=== PATIENT | male | born 1995 | race Caucasian/White ===

== ENCOUNTER 2025-01-15 18:40 | Emergency (ER) | payer BC ==
--- NOTE | 2025-01-15 20:10 | RAD REPORT ---
EXAM: Chest Pa And Lat (2 Views) HISTORY: 29 years Male Cough;Congestion COMPARISON: None. FINDINGS: LUNGS/PLEURA: Likely either linear scarring versus subsegmental atelectasis at the right lung base. N o focal consolidation. No edema. CARDIAC/MEDIASTINUM: The cardiac silhouette is within normal limits. UPPER ABDOMEN: No significant abnormality. BONES: No acute abnormality. LINES/TUBES/OTHER: N/A IMPRESSION: Linear opacity at the right lung base probably subsegmental atelectasis or scarring. Mild pneumonia l ess likely
--- NOTE | 2025-01-15 21:02 | EDPHYS ---
Physician Documentation [facility] Name: Dane Lowry Age: 29 yrs Sex: Male : 1995 Arrival Date: 01/15/2025 Time: 18:40 Bed DX1 Private MD: ED Physician Bry Gross HPI: 01/15 18:52 This 29 yrs old Male presents to ER via Unassigned with complaints of Cough, dr5 Congestion. 18:52 Patient is a 29 year old male coming in with cough / congestion. Patient reports his dr5 PCP has diagnosed with Bronchitis and has completed two full set of antibiotics (Azithromycin) and steroids and reports he has not improved over the past four weeks.. Historical: - Allergies: 18:55 PENICILLINS; iw 18:55 CEPHALOSPORINS; iw - PMHx: 18:55 Hypothyroidism; iw 18:57 Hypercholesterolemia; iw - Immunization history:: Adult Immunizations. - Infectious Disease History:: Denies. - Social history:: Smoking status: Patient denies any tobacco usage or history of. ROS: 01/16 00:13 Constitutional: as per hpi dr5 Exam: 00:13 Constitutional: This is a well developed, well nourished patient who is awake, alert, dr5 and in no acute distress. Head/Face: Normocephalic, atraumatic. Eyes: Pupils equal round and reactive to light, extra-ocular motions intact. Lids and lashes normal. Conjunctiva and sclera are non-icteric and not injected. Cornea within normal limits. Periorbital areas with no swelling, redness, or edema. Neck: Trachea midline, no thyromegaly or masses palpated, and no cervical lymphadenopathy. Supple, full range of motion without nuchal rigidity, or vertebral point tenderness. No Meningismus. Chest/axilla: Normal chest wall appearance and motion. Nontender with no deformity. No lesions are appreciated. Cardiovascular: Regular rate and rhythm with a normal S1 and S2. Normal PMI, no JVD. No pulse deficits. Back: No spinal tenderness. No costovertebral tenderness. Full range of motion. Skin: Warm, dry with normal turgor. Normal color with no rashes, no lesions, and no evidence of cellulitis. MS/ Extremity: Pulses equal, no cyanosis. Neurovascular intact. Full, normal range of motion. Neuro: Awake and alert, GCS 15, oriented to person, place, time, and situation. Cranial nerves II-XII grossly intact. Motor strength 5/5 in all extremities. Sensory grossly intact. Cerebellar exam normal. Normal gait. 00:13 Respiratory: the patient does not display signs of respiratory distress, Respirations: normal, Breath sounds: wheezing: that is mild, is heard in the right posterior lower lobe, Vital Signs: 01/15 18:52 BP 139 / 88; Pulse 96; Resp 19; Pulse Ox 97% on R/A; Weight 144.7 kg; Height 6 ft. 0 iw in. ; 18:52 Body Mass Index 43.26 (144.70 kg, 182.88 cm) iw MDM: 18:51 Medical Screening Exam initiated dr5 01/16 00:14 Differential Diagnosis: Bronchitis Influenza Upper Respiratory Infection Pneumonia. dr5 Data reviewed: vital signs, nurses notes, radiologic studies, plain films. I considered the following discharge prescriptions or medication management in the emergency department Medications were administered in the Emergency Department. See MAR. Historians other than the Patient: Parent: Mother. Care significantly affected by the following chronic conditions: Hypothyroidism, Hypercholesterolemia. Care significantly affected by the following Social Determinants of Health: Poor access to healthcare and/or lack of insurance, Poor access to transportation, Problems related to employment. Counseling: I had a detailed discussion with the patient and/or guardian regarding the historical points, exam findings, and any diagnostic results supporting the discharge/admit diagnosis, the presence of at least one elevated blood pressure reading (>120/80) during this emergency department visit, radiology results, the need for outpatient follow up, for definitive care, a family practitioner, to return to the emergency department if symptoms worsen or persist or if there are any questions or concerns that arise at home. ED course: Concerns for possible developing pneumonia, will cover with azithromycin and doxycycline. Zofran given for possible nausea while taking antibiotics. Will hold off on steroids as patient has already completed them and could make patient more immunocompromised. All questions answered. Mother and patient are agreeable to plan.. 01/15 18:56 Order name: Chest Pa And Lat (2 Views) XRAY; Complete Time: 20:34 dr5 Administered Medications: 01/15 21:18 Drug: Doxycycline PO 100 mg PO once Route: PO; cm10 21:18 Follow up: Response: Medication administered at discharge. cm10 Disposition: 22:07 Co-signature as Attending Physician, Bry Gross MD I reviewed the patient's care rt provided by the Advanced Practice Provider and agree with the diagnosis and treatment plan. Disposition Summary: 01/15/25 21:01 Discharge Ordered Notes: Location: Home dr5 Condition: Stable dr5 Diagnosis - Pneumonia, unspecified organism dr5 Followup: dr5 - With: Emergency Department - When: As needed - Reason: Worsening of condition Followup: dr5 - With: Private Physician - When: 1 - 2 days - Reason: Recheck today's complaints, Continuance of care, Re-evaluation by your physician Discharge Instructions: - Discharge Summary Sheet dr5 - Community-Acquired Pneumonia, Adult dr5 Forms: - Work release form dr5 - Medication Reconciliation Form dr5 - Antibiotic Education dr5 - Patient Portal Instructions dr5 - Leadership Thank You Letter dr5 Prescriptions: - Zofran 4 mg Oral Tablet - take 1 tablet ORAL route every 12 hours As needed; 20 tablet; Refills: 0, dr5 Product Selection Permitted - Doxycycline Hyclate 100 mg Oral Tablet - take 1 tablet ORAL route every 12 hours; 20 tablet; Refills: 0, Product dr5 Selection Permitted - Zithromax Z-Case 250 mg Oral Tablet - take 1 tablet ORAL route as directed for 5 days Day 1 - take two (2) tablets dr5 one time. Day 2, 3, 4 , 5 take one (1) tablet once daily.; 6 tablet; Refills: 0, Product Selection Permitted Signatures: Dispatcher [employer] Chelly Sahu, Bry Caal RN, MD MD rt Farzaneh Burnett RN RN cm10 Mainor Valdez, LEGAL ADMINISTRATOR-C LEGAL ADMINISTRATOR-Cdr5 Corrections: (The following items were deleted from the chart) 01/16 00:14 00:13 Respiratory: the patient does not display signs of respiratory distress, dr5 Respirations: normal, Breath sounds: dr5
--- NOTE | 2025-01-15 21:02 | ER ---
Nurse's Notes [facility] Name: Dane Lowry Age: 29 yrs Sex: Male : 1995 Arrival Date: 01/15/2025 Time: 18:40 Bed DX1 Private MD: Diagnosis: Pneumonia, unspecified organism Presentation: 01/15 18:52 Chief complaint: Patient states: PCP said he has bronchitis, has been on steroids and iw abx for past month, cough is worse. Coronavirus screen: At this time, the client does not indicate any symptoms associated with coronavirus-19. Ebola Screen: No symptoms or risks identified at this time. Initial Sepsis Screen: Does the patient meet any 2 criteria? HR > 90 bpm. Does the patient have a suspected source of infection? No. Patient's initial sepsis screen is negative. Risk Assessment: Do you want to hurt yourself or someone else? Patient reports no desire to harm self or others. Onset of symptoms was November 2024. 18:52 Method Of Arrival: Ambulatory iw 18:52 Acuity: ALEKSANDER 4 iw Historical: - Allergies: 18:55 PENICILLINS; iw 18:55 CEPHALOSPORINS; iw - PMHx: 18:55 Hypothyroidism; iw 18:57 Hypercholesterolemia; iw - Immunization history:: Adult Immunizations. - Infectious Disease History:: Denies. - Social history:: Smoking status: Patient denies any tobacco usage or history of. Screenin:19 [facility] ED Fall Risk Assessment (Adult) History of falling in the last 3 months, cm10 including since admission No falls in past 3 months (0 pts) Confusion or Disorientation No (0 pts) Intoxicated or Sedated No (0 pts) Impaired Gait No (0 pts) Mobility Assist Device Used No (0 pt) Altered Elimination No (0 pt) Score/Fall Risk Level 0 - 2 = Low Risk Oriented to surroundings, Maintained a safe environment, Hourly rounding (assess needs \T\ fall precautionary measures) done. Abuse screen: Denies threats or abuse. Denies injuries from another. Nutritional screening: No deficits noted. Tuberculosis screening: No symptoms or risk factors identified. Assessment: 21:20 General: Appears in no apparent distress. uncomfortable, Behavior is calm, cooperative. cm10 Pain: Denies pain. Neuro: No deficits noted. Level of Consciousness is awake, alert, obeys commands, Oriented to person, place, time, situation, Appropriate for age. Cardiovascular: Patient's skin is warm and dry. Respiratory: Reports cough that is Airway is patent Respiratory effort is even, unlabored, Respiratory pattern is regular, symmetrical. Vital Signs: 18:52 BP 139 / 88; Pulse 96; Resp 19; Pulse Ox 97% on R/A; Weight 144.7 kg; Height 6 ft. 0 iw in. ; 18:52 Body Mass Index 43.26 (144.70 kg, 182.88 cm) iw ED Course: 18:44 Patient arrived in ED. im 18:51 Mainor Valdez FNP-C is PHCP. dr5 18:51 Darek Leung MD is Attending Physician. dr5 18:54 Triage completed. iw 19:48 Chest Pa And Lat (2 Views) XRAY In Process Unspecified. EDMS 21:19 Arm band placed on. cm10 21:20 Patient has correct armband on for positive identification. Provided Education on: cm10 follow-up instructions. 21:20 No provider procedures requiring assistance completed. Patient did not have IV access cm10 during this emergency room visit. 21:26 Attending Physician role handed off by Darek Leung MD dr5 21:27 Bry Gross MD is Attending Physician. dr5 Administered Medications: 21:18 Drug: Doxycycline PO 100 mg PO once Route: PO; cm10 21:18 Follow up: Response: Medication administered at discharge. cm10 Medication: 21:19 VIS not applicable for this client. cm10 Outcome: 21:01 Discharge ordered by MD. dr5 21:21 Discharged to home ambulatory, with family, cm10 21:21 Condition: good 21:21 Discharge instructions given to patient, Instructed on discharge instructions, follow up and referral plans. medication usage, Demonstrated understanding of instructions, follow-up care, medications, Prescriptions given X 2, 21:21 Patient left the ED. cm10 21:27 Patient left the ED. dr5 Signatures: Dispatcher [employer] EDMS Chelly Ramsay RN RN iw Jennifer Sanchez Clarissa, RN RN cm10 Mainor Valdez FNP-C COMMUNITY CASE MANAGER-Cdr5 Corrections: (The following items were deleted from the chart) 18:57 18:52 BP 139 / 88; Pulse 96bpm; Resp 19bpm; Pulse Ox 97% RA; iw iw
[2025-01-15] MEDS ORDERED: DOXYCYCLINE 100 MG CAP PO ONE (21:15)
[2025-01-15] MEDS ORDERED: ONDANSETRON 4 MG (ODT) TAB ONE (21:22)
[2025-01-17 23:14] VITALS: BP 139/88; O2SAT 97
== END 2025-01-15 21:27 | disposition home or self-care (01) ==
LOC: ER 18:40
DX: J18.9 Pneumonia, unspecified organism (principal)
CPT/HCPCS: 71046; 99283; Q0162

== ENCOUNTER 2025-01-20 19:06 | Emergency (ER) | payer BC ==
--- NOTE | 2025-01-20 20:00 | RAD REPORT ---
EXAMINATION: TWO VIEW CHEST XR CLINICAL INDICATION: COUGH TECHNIQUE: 2 views of the chest was performed. COMPARISON: 01/15/2025 FINDINGS: Nonspecific peribronchial thickening without focal consolidation could represent a viral infection or reactive airway disease. The heart is upper limit of normal in size. No displaced fractures evident. IMPRESSION: Findings could represent a viral infection or reactive airway disease.
[2025-01-20 20:58] LABS: Influenza A Ag Negative; Influenza B Ag Negative; SARS-CoV-2 Antigen Rapid Res Negative (Negative)
[2025-01-20] MEDS ORDERED: LEVALBUTEROL 1.25 MG/3 ML NEB ONE (21:12)
[2025-01-20] MEDS ORDERED: IPRATROPIUM BROM 0.5MG/2.5ML ONE (21:12)
[2025-01-20] MEDS ORDERED: AZITHROMYCIN 250 MG TAB ONE (21:12)
--- NOTE | 2025-01-20 22:10 | ER ---
Nurse's Notes [facility] Name: Dane Lowry Age: 29 yrs Sex: Male : 1995 Arrival Date: 01/20/2025 Time: 19:06 Bed DX1 Private MD: Diagnosis: Upper respiratory infection, viral pneumonia Presentation: 01/20 19:50 Chief complaint: Patient states: BAD COUGH, PAIN IN CHEST WHEN COUGHING . WAS HERE ON ha1 FRIDAY GOT DIAGNOSED WITH PNEUMONIA AND HAS BEEN TAKING MEDICATIONS PRESCRIBED BUT MY COUGH HAS NOT GONE AWAY COMPLETELY AND I AM WONDERING IF I AM GETTING WORSE. Coronavirus screen: Client denies travel out of the [place] in the last 14 days. Ebola Screen: No symptoms or risks identified at this time. Initial Sepsis Screen: Does the patient meet any 2 criteria? No. Patient's initial sepsis screen is negative. Does the patient have a suspected source of infection? No. Patient's initial sepsis screen is negative. Risk Assessment: Do you want to hurt yourself or someone else? Patient reports no desire to harm self or others. Onset of symptoms was January 13, 2025. 19:50 Method Of Arrival: Ambulatory ha1 19:50 Acuity: ALEKSANDER 4 ha1 Triage Assessment: 19:55 General: Appears comfortable, Behavior is calm, cooperative. Pain:. Neuro: Level of ha1 Consciousness is awake, alert, obeys commands, Oriented to person, place, time, situation. Cardiovascular: Capillary refill < 3 seconds Patient's skin is warm and dry. Respiratory: Airway is patent Respiratory effort is even, unlabored, Respiratory pattern is regular, symmetrical. Historical: - Allergies: 19:55 CEPHALOSPORINS; ha1 19:55 PENICILLINS; ha1 - PMHx: 19:55 Hypercholesterolemia; Hypothyroidism; ha1 - Immunization history:: Adult Immunizations up to date. - Infectious Disease History:: Denies. - Social history:: Smoking status: Patient denies any tobacco usage or history of. Screenin:10 [facility] ED Fall Risk Assessment (Adult) History of falling in the last 3 months, kl including since admission No falls in past 3 months (0 pts) Confusion or Disorientation No (0 pts) Intoxicated or Sedated No (0 pts) Impaired Gait No (0 pts) Mobility Assist Device Used No (0 pt) Altered Elimination No (0 pt) Score/Fall Risk Level 0 - 2 = Low Risk Oriented to surroundings. Abuse screen: Denies threats or abuse. Denies injuries from another. Nutritional screening: No deficits noted. Tuberculosis screening: No symptoms or risk factors identified. Assessment: 22:10 General: Appears in no apparent distress. comfortable, Behavior is calm, cooperative. kl 22:10 Respiratory: Reports cough that is productive. Vital Signs: 19:50 BP 124 / 85; Pulse 97; Resp 18 S; Temp 99.1(O); Pulse Ox 98% on R/A; Weight 99.34 kg; ha1 Height 6 ft. 0 in. ; 19:50 Body Mass Index 29.70 (99.34 kg, 182.88 cm) 1 ED Course: 19:07 Patient arrived in ED. im 19:21 Bran Rondon MD is Attending Physician. jb 19:47 Chest Pa And Lat (2 Views) XRAY In Process Unspecified. EDPA 19:55 Triage completed. ha1 20:08 Attending Physician role handed off by Bran Rondon MD sp3 20:08 Pricilla Middleton MD is Attending Physician. sp3 22:10 Patient has correct armband on for positive identification. Provided Education on: kl Discharge, medications. 22:10 No provider procedures requiring assistance completed. Patient did not have IV access kl during this emergency room visit. Administered Medications: 21:20 Drug: Levalbuterol Inhalation 2.5 mg Inhalation once Route: Inhalation; 21:56 Follow up: Response: No adverse reaction kl 21:20 Drug: Ipratropium Inhalation Aerosol 0.5 mg Inhalation once Route: Inhalation; 21:56 Follow up: Response: No adverse reaction 21:20 Drug: AZITHromycin PO 500 mg PO once Route: PO; kl 21:56 Follow up: Response: No adverse reaction Medication: 22:10 VIS not applicable for this client. Outcome: 22:09 Discharge ordered by . sp3 22:20 Discharged to home ambulatory, with family, kl 22:20 Condition: stable 22:20 Discharge instructions given to patient, family, Instructed on discharge instructions, follow up and referral plans. medication usage, Demonstrated understanding of instructions, follow-up care, medications, Prescriptions given X 3, 22:26 Patient left the ED. Signatures: Dispatcher [facility] EDSwetha Rees RN RN Bran Floyd MD MD cha Patel, Setul, MD MD sp3 Ute Mirza RN RN ha1 Jennifer Sanchez
--- NOTE | 2025-01-20 22:10 | EDPHYS ---
Physician Documentation [facility] Name: Dane Lowry Age: 29 yrs Sex: Male : 1995 Arrival Date: 01/20/2025 Time: 19:06 Bed DX1 Private MD: ED Physician Pricilla Middleton HPI: 01/20 22:06 This 29 yrs old Male presents to ER via Ambulatory with complaints of Chest Congestion. sp3 22:06 29-year-old male with history of hyperlipidemia, hypothyroidism presents with recurrent sp3 and continued cough and congestion over the last month. Patient states that he is in [place] for work and has seen urgent care after as well as his family doctor. He is already been on antibiotics and steroids and has an inhaler. He does not use a spacing device with said inhaler. He is not on any current steroids or antibiotics as he is 1 the course. He presents today primarily for continued cough, congestion and difficulty breathing. He denies any chest pain, blood in his expectorant, back pain, abdominal pain, fever, or any other signs or symptoms on ROS at this time.. Historical: - Allergies: 19:55 CEPHALOSPORINS; ha1 19:55 PENICILLINS; ha1 - PMHx: 19:55 Hypercholesterolemia; Hypothyroidism; ha1 - Immunization history:: Adult Immunizations up to date. - Infectious Disease History:: Denies. - Social history:: Smoking status: Patient denies any tobacco usage or history of. ROS: 22:07 Constitutional: Negative for fever, chills, and weight loss, Eyes: Negative for injury, sp3 pain, redness, and discharge, ENT: Negative for injury, pain, and discharge, Neck: Negative for injury, pain, and swelling, Cardiovascular: Negative for chest pain, palpitations, and edema, Abdomen/GI: Negative for abdominal pain, nausea, vomiting, diarrhea, and constipation, Back: Negative for injury and pain, MS/Extremity: Negative for injury and deformity, Skin: Negative for injury, rash, and discoloration, Neuro: Negative for headache, weakness, numbness, tingling, and seizure, Psych: Negative for depression, anxiety, suicide ideation, homicidal ideation, and hallucinations, Allergy/Immunology: Negative for hives, rash, and allergies, Endocrine: Negative for neck swelling, polydipsia, polyuria, polyphagia, and marked weight changes, 22:07 All other systems are negative, Exam: 22:07 Constitutional: This is a well developed, well nourished patient who is awake, alert, sp3 and in no acute distress. Head/Face: Normocephalic, atraumatic. Eyes: Pupils equal round and reactive to light, extra-ocular motions intact. Lids and lashes normal. Conjunctiva and sclera are non-icteric and not injected. Cornea within normal limits. Periorbital areas with no swelling, redness, or edema. ENT: Nares patent. No nasal discharge, no septal abnormalities noted. External auditory canals are clear. Oropharynx with no redness, swelling, or masses, exudates, or evidence of obstruction, uvula midline. Mucous membranes moist. Neck: Trachea midline, no thyromegaly or masses palpated, and no cervical lymphadenopathy. Supple, full range of motion without nuchal rigidity, or vertebral point tenderness. No Meningismus. Chest/axilla: Normal chest wall appearance and motion. Nontender with no deformity. No lesions are appreciated. Cardiovascular: Regular rate and rhythm with a normal S1 and S2. No gallops, murmurs, or rubs. Normal PMI, no JVD. No pulse deficits. Abdomen/GI: Soft, non-tender, with normal bowel sounds. No distension or tympany. No guarding or rebound. No evidence of tenderness throughout. Back: No spinal tenderness. No costovertebral tenderness. Full range of motion. Skin: Warm, dry with normal turgor. Normal color with no rashes, no lesions, and no evidence of cellulitis. MS/ Extremity: Pulses equal, no cyanosis. Neurovascular intact. Full, normal range of motion. Neuro: Awake and alert, GCS 15, oriented to person, place, time, and situation. Cranial nerves II-XII grossly intact. Motor strength 5/5 in all extremities. Sensory grossly intact. Cerebellar exam normal. Normal gait. Psych: Awake, alert, with orientation to person, place and time. Behavior, mood, and affect are within normal limits. 22:07 Respiratory: Patient with active cough, rhonchi and wheezing. No accessory muscle use. Pulse oxygenation 98% on room air., Vital Signs: 19:50 BP 124 / 85; Pulse 97; Resp 18 S; Temp 99.1(O); Pulse Ox 98% on R/A; Weight 99.34 kg; ha1 Height 6 ft. 0 in. ; 19:50 Body Mass Index 29.70 (99.34 kg, 182.88 cm) ha1 MDM: 19:22 Medical Screening Exam initiated [facility] 22:08 Data reviewed: vital signs, nurses notes, lab test result(s), radiologic studies. ED sp3 course: 29-year-old male with continued URI symptoms. Viral swabs are negative and chest x-ray demonstrates viral pattern. Clinically unlikely suspicious of bacterial pneumonia, sepsis, shock, PE or any other critical process at this time. I have taught patient how to use a spacing device with his inhaler. He also has a nebulizer machine at home so we will prescribe albuterol Nebules. Also another course of steroids and Tessalon Perles. I have advised him if he is not better after this round he needs to see pulmonary for further workup for any other possible cause of his illness.. 01/20 19:23 Order name: COVID-19 Ag + Flu A+B Ag; Complete Time: 21:01 [facility] 01/20 19:23 Order name: Chest Pa And Lat (2 Views) XRAY; Complete Time: 20:09 [facility] Administered Medications: 21:20 Drug: Levalbuterol Inhalation 2.5 mg Inhalation once Route: Inhalation; kl 21:56 Follow up: Response: No adverse reaction kl 21:20 Drug: Ipratropium Inhalation Aerosol 0.5 mg Inhalation once Route: Inhalation; kl 21:56 Follow up: Response: No adverse reaction kl 21:20 Drug: AZITHromycin PO 500 mg PO once Route: PO; kl 21:56 Follow up: Response: No adverse reaction kl Disposition Summary: 01/20/25 22:09 Discharge Ordered Notes: Location: Home sp3 Condition: Stable sp3 Diagnosis - Upper respiratory infection, viral pneumonia sp3 Followup: sp3 - With: Private Physician - When: Upon discharge from the Emergency Department - Reason: Continuance of care Discharge Instructions: - Discharge Summary Sheet sp3 - Viral Respiratory Infection sp3 Forms: - Work release form [id number] - Medication Reconciliation Form sp3 - Antibiotic Education sp3 - Prescription Opioid Use sp3 - Patient Portal Instructions sp3 - Leadership Thank You Letter sp3 Prescriptions: - Tessalon Perles 100 mg Oral Capsule - take 1 capsule ORAL route every 8 hours As needed; 15 capsule; Refills: 0, sp3 Product Selection Permitted - Albuterol Sulfate 2.5 mg /3 mL (0.083 %) Inhalation Solution for Nebulization - inhale 1 unit NEBULIZATION route every 8 hours As needed; 1 Each; Refills: 0, sp3 Product Selection Permitted - Prednisone 20 mg Oral Tablet - take 2 tablets ORAL route once daily for 5 days; 10 tablet; Refills: 0, Product sp3 Selection Permitted Signatures: Dispatcher [employer] Swetha Edge, RN RN Bran Floyd MD MD cha Patel, Setul, MD MD sp3 Ute Mirza, RN RN ha1
[2025-01-20 23:14] VITALS: BP 124/85; TEMP 99.1; O2SAT 98
== END 2025-01-20 22:26 | disposition home or self-care (01) ==
LOC: ER 19:06
DX: J12.9 Viral pneumonia, unspecified (principal); J06.9 Acute upper respiratory infection, unspecified; E03.9 Hypothyroidism, unspecified; E78.00 Pure hypercholesterolemia, unspecified; Z11.52 Encounter for screening for COVID-19
CPT/HCPCS: 36415; 71046; 99284; 87428; J7614; J7644